=== PATIENT | female | born 1955 | race Asian ===

== ENCOUNTER 2016-12-03 08:05 | Day surgery (SDC) | payer OTHER ==
[~2016-12-03] VITALS: Ht 152.4 cm; Wt 46.8 kg
[2016-12-03] MEDS ORDERED: OMEP40CA6 PO (09:17)
[2016-12-03] MEDS ORDERED: ASPI81TA3 PO (09:17)
[2016-12-03] MEDS ORDERED: LISI-313 PO (09:17)
[2016-12-03] MEDS ORDERED: SITA25TA3 PO (09:17)
[2016-12-03] MEDS ORDERED: GLYB2.5T2 PO (09:17)
[2016-12-03] MEDS ORDERED: ATOR40TA68 PO (09:17)
[2016-12-03 09:43] VITALS: BP 138/64; PULSE 64; RESP 17
--- NOTE | 2016-12-03 10:31 | OPPN ---
Date/Time of Note Date/Time of Note DATE: 12/03/16 TIME: 09:49 Operative Report Preoperative Diagnosis Chronic heartburn Screening Postoperative Diagnosis Gastroesophageal reflux disease Gastritis and biopsy was positive for infection Duodenal ulcer Internal hemorrhoids No colon neoplasm is identified Operation/Procedure Performed Esophagogastroduodenoscopy and biopsy Colonoscopy Surgeon see signature line bankruptcy legal assistant None Anesthesia: moderate sedation Estimated blood loss: none Transfusion Required none Specimen Gastric mucosal biopsy Grafts/Implants none Complications none TEX BLANTON MD Dec 03, 2016 10:31
[2016-12-03] MEDS ORDERED: FENTAnyl 50 MCG/ML VIAL ONE (10:41)
[2016-12-03] MEDS ORDERED: MIDAZOLAM 1 MG/ML 2 ML INJ ONE ×2 (10:42)
[2016-12-03 10:53] VITALS: BP 126/58; RESP 14
--- NOTE | 2016-12-03 12:50 | GILP ---
DATE OF PROCEDURE: NAME OF PROCEDURES: 1. Esophagogastroduodenoscopy and biopsy. 2. Colonoscopy. SURGEON: Tex Ca MD PREOPERATIVE DIAGNOSES: 1. Chronic heartburn. 2. Screening colonoscopy. POSTOPERATIVE DIAGNOSES: 1. Gastroesophageal reflux disease. 2. Gastritis with erosions and biopsy was positive for Helicobacter pylori infection. 3. Duodenal bulb ulcer. 4. Colonoscopy all the way to the cecum. 5. Small internal hemorrhoids. 6. No colon neoplasm was identified. INDICATION FOR THE PROCEDURE: Ms. Luna Dale is a 61-year-old female patient who had chronic he artburn, not responding to therapy. She also needed screening colonoscopy. The procedures and possible complications were well explained to the patient, she understood and con sented to the procedure. DESCRIPTION OF PROCEDURE: Under the influence of fentanyl and Versed, the gastroscope was carefully introduced into the esophagus and under direct vision, it was advanced to the stomach and through t he pylorus into the duodenal bulb and descending duodenum. FINDINGS: ESOPHAGUS: The patient had gastroesophageal reflux disease. STOMACH: She had gastritis with erosions and biopsy was positive for Helicobacter pylori infection. DUODENUM: The patient had duodenal bulb ulcer. The colonoscope was carefully introduced in the rectum and under direct vision, it was advanced all the way to the cecum. FINDINGS: The patient had small internal hemorrhoids. No colon neoplasm was identified. She tolerated the procedures very well and there was no complication from the procedures. At the en d of the procedures, she was awake with stable vital signs and she was discharged home to the care o f her family. IMPRESSION: Please see postoperative diagnoses. PLAN: 1. Zantac 300 mg p.o. b.i.d. for 14 days. 2. Doxycycline 100 mg p.o. b.i.d. for 14 days. 3. Flagyl 500 mg p.o. b.i.d. for 14 days. 4. Pepto-Bismol 2 tablets p.o. q.i.d. for 14 days. 5. Next screening colonoscopy in 10 years. Dictated By: TEX TAM/REINIER Conf#: [id number] DID#: [id number]
== END 2016-12-03 11:19 | disposition home or self-care (01) ==
LOC: GIL 08:05
PROVIDERS: ATTEND Internal Medicine Gastroenterology
DX: Z12.11 Encounter for screening for malignant neoplasm of colon (principal); K21.9 Gastro-esophageal reflux disease without esophagitis; K29.70 Gastritis, unspecified, without bleeding; K26.9 Duodenal ulcer, unspecified as acute or chronic, without hemorrhage or perforation; K64.8 Other hemorrhoids; B96.81 Helicobacter pylori [H. pylori] as the cause of diseases classified elsewhere; K25.9 Gastric ulcer, unspecified as acute or chronic, without hemorrhage or perforation
CPT/HCPCS: 43239; 45378; 82962; 87081; J2250; J3010